=== PATIENT | female | born 1990 | race Caucasian/White ===

== ENCOUNTER 2017-10-19 09:28 | Observation (INO) ==
[2017-10-19] MEDS ORDERED: Orphenadrine 60 MG/2 ML VIAL IM ONE (09:41)
[2017-10-19] MEDS ORDERED: Ketorolac 15 MG/ML VIAL IM ONE (09:41)
--- NOTE | 2017-10-19 09:41 | Emergency Department Note ---
Disposition Clinical Impression: Lumbar pain Disposition: Admitted As Inpatient Condition: Good General Adult HPI - General Chief complaint: ED Back Pain/Injury Stated complaint: lower back pain Time Seen by Provider: 10/19/17 09:33 Source: patient Mode of arrival: EMS Limitations: no limitations Nursing Notes Reviewed: Yes Vital Signs Reviewed: Yes - History of Present Illness HPI Narrative: Patient is a 27 year old female with a past medical history of a back injury due to a work incident presenting to his primary complaint of a recent back injury that occurred yesterday evening. The patient states that she has had cold-like symptoms and last night she was coughing and after having a burst of coughing the patient states that she felt her back give out and she felt severe spasm in her lower lumbars. The patient states that she woke up this morning and she was having difficulty moving or getting out of bed so she called squad. She denies any fevers, chills, extremity weakness, loss of sensation, or loss of bowel or bladder function. Patient has a packet of information with with her that reveals proof of lumbar strain in the past however do not see any history of MRI with imaging results, however the patient states that she has had one which has showed compressed nerves in her back she is unsure of the specifics. - Related Data Home Medications Medication Instructions Recorded Confirmed Desog-E.estradiol/E.estradiol 1 tab PO DAILY 10/19/17 10/19/17 [Kimidess 28 Day Tablet] Previous Rx's Medication Instructions Recorded Cyclobenzaprine [Flexeril] 10 mg PO BID PRN #10 tablet 10/20/17 HYDROcodone/Acet 5/325 mg [[place] 1 tab PO Q6H PRN #12 tab 10/20/17 5-325 mg] predniSONE [PredniSONE] 40 mg PO DAILY #10 tablet 10/20/17 Allergies Allergy/AdvReac Type Severity Reaction Status Date / Time No Known Allergies Allergy Verified 10/19/17 10:00 All systems ED: reviewed and negative except as stated. Review of Systems: As Per HPI Constitutional: Denies: fever, chills ENT ED: Reports: congestion Cardiovascular: Denies: chest pain, palpitations, dyspnea on exertion, syncope Respiratory: Reports: cough. Denies: dyspnea, wheezes, hemoptysis, sputum production Gastrointestinal: Reports: other (Denies bowel incontinence or retention.). Denies: abdominal pain, nausea, vomiting, diarrhea, constipation Genitourinary: Reports: other (Denies bladder incontinence or retention.). Denies: urgency, dysuria, frequency Musculoskeletal: Reports: back pain. Denies: neck pain Integumentary: Denies: rash, abrasion Neurological: Denies: headache, weakness, numbness, paresthesias Past Medical History - Past Medical History Attestation: Yes The following information was validated with the patient. Physical Exam CONSTITUTIONAL: Well-appearing; well-nourished; A&O X 3, the patient is tearful on exam and she is laying flat on her back and states that she has difficulty with sitting up or moving positions. HEAD: Normocephalic; atraumatic. NOSE: The nose is normal in appearance without rhinorrhea LUNGS: CTAB, no wheezing CV: RRR without murmur, rub, gallop ABD: Non-distended, non-tender, soft, without rigidity, rebound or guarding BACK: There is pain with palpation musculature low back mainly in the lumbar to sacral area. No midline cervical/thoracic/lumbar sacral tenderness to palpation NEURO: Strength 5/5 for flexion and extension bilateral lower extremities, patellar DTR's normal X2, straight leg raise negative X2, sensation grossly intact bilateral lower extremities. No evidence of urinary incontinence SKIN: Normal for age and race; warm and dry; no apparent lesions, bruising or rashes Course Course Narrative: Patient is complaining of severe lower back pain, however there is no evidence of focal neurological deficit and the patient denies any bowel or bladder incontinence she also denies any history of IV drug abuse. He attempted to control the patient's pain without narcotics by using Toradol and steroids at the recommendation of spine surgeon Dr. Wheeler. However, we are not able to sufficiently treat the patient's pain. A CT of lumbar spine was ordered which revealed 4mm protrusion centrally of the disc between L5 and S1. The patient was given 2 [place] still without pain relief. This was followed by a dose of Dilaudid for pain which the patient's symptoms still not improved. Therefore plan is to admit the patient with an order for a lumbar MRI requested by the hospitalist and she will be admitted for pain control with a consult from Dr. Wheeler. Patient agrees with this plan. Vital Signs Temperature 98.1 F 10/19/17 09:30 Pulse Rate 123 01/03/18 09:30 Respiratory Rate 18 10/19/17 09:30 Blood Pressure 135/118 10/19/17 09:30 O2 Sat by Pulse Oximetry 100 10/19/17 09:30 Temperature 98.1 F 10/20/17 13:00 Pulse Rate 91 10/20/17 13:00 Respiratory Rate 20 10/20/17 13:00 Blood Pressure 103/69 10/20/17 13:00 O2 Sat by Pulse Oximetry 96 10/20/17 13:00 Oxygen Delivery Oxygen Delivery Room Air Medical Decision Making - Medical Records Medical records reviewed: Yes I reviewed the patient's medical records. - Lab Data Lab results reviewed: Yes I reviewed the patient's lab results. Result diagrams: 10/20/17 05:42 10/20/17 05:42 Lab Results 10/19/17 10/19/17 10/19/17 Range/Units 10:12 10:12 14:54 WBC 7.8 (4.3-11.1) K/mcL RBC 4.70 (3.82-4.97) M/mcL Hgb 13.5 (11.5-15.4) g/dL Hct 41.3 (35.3-44.9) % MCV 87.9 (83.0-100.0) fL MCH 28.7 (28.0-33.3) pg MCHC 32.7 (31.6-35.5) g/dL RDW 12.9 (11.5-14.5) % Plt Count 260 (140-400) K/mcL MPV 9.3 L (9.4-12.4) fL Immature Gran % 0.3 (0-4) % Seg Neutrophils % 66.1 % Lymphocytes % 25.9 % Monocytes % 7.3 % Eosinophils % 0.3 % Basophils % 0.1 % Neutrophils # 5.1 (1.6-8.9) K/mcL Lymphocytes # 2.0 (0.6-4.6) K/mcL Monocytes # 0.6 (0.0-1.3) K/mcL Eosinophils # 0.0 (0.0-0.6) K/mcL Basophils # 0.0 (0.0-0.2) K/mcL Sodium (136-145) mEq/L Potassium (3.5-5.1) mEq/L Chloride (98-107) mEq/L Carbon Dioxide (23-29) mEq/L BUN (6-20) mg/dL Creatinine (0.60-1.20) mg/dL Est GFR ( Amer) (> 60) Est GFR (Non-Af Amer) (> 60) BUN/Creatinine Ratio (6-26) Glucose (70-105) mg/dL Calculated Osmolality (280-300) Calcium (8.6-10.3) mg/dL Urine Color Yellow (Yellow) Urine Clarity Cloudy A (Clear) Urine pH 6.0 (5.0-8.0) pH Units Ur Specific [place] 1.012 (1.010-1.025) Urine Protein Negative (Neg-Trace) mg/dL Urine Glucose (UA) Normal (Normal) mg/dL Urine Ketones Trace H (Negative) mg/dL Urine Blood Negative (Negative) Urine Nitrite Negative (Negative) Urine Bilirubin Negative (Negative) Urine Urobilinogen Normal (Normal) mg/dL Ur Leukocyte Esterase Negative (Negative) Urine Microscopic RBC 0-3 (0-3) per hpf Urine Microscopic WBC 3-5 H (0-3) per hpf Ur Squamous Epith Cells Many H (None-Few) per lpf Urine Bacteria None Seen (None-Few) per hpf Hyaline Casts None Seen (None-Few) per lpf Ur Culture Indicated? NO (NO) Urine Test Negative (Negative) 10/19/17 Range/Units 14:54 WBC (4.3-11.1) K/mcL RBC (3.82-4.97) M/mcL Hgb (11.5-15.4) g/dL Hct (35.3-44.9) % MCV (83.0-100.0) fL MCH (28.0-33.3) pg MCHC (31.6-35.5) g/dL RDW (11.5-14.5) % Plt Count (140-400) K/mcL MPV (9.4-12.4) fL Immature Gran % (0-4) % Seg Neutrophils % % Lymphocytes % % Monocytes % % Eosinophils % % Basophils % % Neutrophils # (1.6-8.9) K/mcL Lymphocytes # (0.6-4.6) K/mcL Monocytes # (0.0-1.3) K/mcL Eosinophils # (0.0-0.6) K/mcL Basophils # (0.0-0.2) K/mcL Sodium 139 (136-145) mEq/L Potassium 2.9 L (3.5-5.1) mEq/L Chloride 108 H (98-107) mEq/L Carbon Dioxide 24 (23-29) mEq/L BUN 7 (6-20) mg/dL Creatinine 0.71 (0.60-1.20) mg/dL Est GFR ( Amer) > 60 (> 60) Est GFR (Non-Af Amer) > 60 (> 60) BUN/Creatinine Ratio 10 (6-26) Glucose 95 (70-105) mg/dL Calculated Osmolality 286 (280-300) Calcium 8.5 L (8.6-10.3) mg/dL Urine Color (Yellow) Urine Clarity (Clear) Urine pH (5.0-8.0) pH Units Ur Specific [place] (1.010-1.025) Urine Protein (Neg-Trace) mg/dL Urine Glucose (UA) (Normal) mg/dL Urine Ketones (Negative) mg/dL Urine Blood (Negative) Urine Nitrite (Negative) Urine Bilirubin (Negative) Urine Urobilinogen (Normal) mg/dL Ur Leukocyte Esterase (Negative) Urine Microscopic RBC (0-3) per hpf Urine Microscopic WBC (0-3) per hpf Ur Squamous Epith Cells (None-Few) per lpf Urine Bacteria (None-Few) per hpf Hyaline Casts (None-Few) per lpf Ur Culture Indicated? (NO) Urine Test (Negative) - Radiology Data Radiology results reviewed: Yes I reviewed the patient's radiology results. Lumbar Spine CT 10/19/17 10:28 IMPRESSION: Central disc protrusion at L5-S1 measuring approximately 4 mm in AP dimension. Otherwise unremarkable examination of the lumbar spine. D/ / 10/19/2017 11:34:42 Sunday Hunter MD / rich Interpreting Provider: Sunday Hunter MD Lumbar Spine MRI 10/19/17 14:39 IMPRESSION: Mild scoliosis and small central disc protrusion/disc marginal osteophyte at L5-S1 D/ / Jayy Blackman MD / Jayy Blackman MD Interpreting Provider: Jayy Blackman MD
--- NOTE | 2017-10-19 10:19 | Emergency Department Note ---
START Narrative - START START: I examined this patient and my medical decision-making was reviewed with the Resident Physician. I agree with the documented findings, disposition and treatment plan as described except to the extent set forth below. 27 yo F here for low back pain injured back today while having a coughing episode and having low back pain no cord compression symptoms. will tx with analgesics and muscle relaxer to see if this helps her discomfort she has had flu like illness as well her back pain started from the coughing spell and had no back pain prior to that.
[2017-10-19 10:24] LABS: Bilirubin,Urine Negative (Negative); Blood,Urine Negative (Negative); Clarity,Urine Cloudy (Clear); Color,Urine Yellow (Yellow); Glucose,Urine (UA) Normal (Normal); Ketones,Urine Trace mg/dL (Negative); Leukocyte Esterase,Urine Negative (Negative); Nitrite,Urine Negative (Negative); Protein,Urine Negative (Neg-Trace); Specific Gravity,Urine 1.012 (1.010-1.025); Urobilinogen,Urine Normal (Normal)
[2017-10-19 10:28] LABS: Bacteria,Urine None Seen per hpf (None-Few); Hyaline Casts,Urine None Seen per lpf (None-Few); RBC,Urine 0-3 per hpf (0-3); Squamous Epithelial Cell,Urine Many per lpf (None-Few)
[2017-10-19] MEDS ORDERED: *HR* HYDROcodone/Acet 5/325 mg TABLET PO ONE ×2 (11:20→12:21)
[2017-10-19] MEDS ORDERED: predniSONE 20 MG TABLET PO ONE (12:04)
[2017-10-19] MEDS ORDERED: Ondansetron ODT 4 MG TAB.RAPDIS SL ONE (13:19)
[2017-10-19] MEDS ORDERED: *HR* HYDROmorphone (PF) 1 MG/ML SYRINGE IM ONE ×2 (13:19→13:21)
[2017-10-19 15:01] LABS: Basophils % 0.1 %; Eosinophils % 0.3 %; Hematocrit 41.3 % (35.3-44.9); Hemoglobin 13.5 g/dL (11.5-15.4); Immature Granulocytes % 0.3 % (0-4); Lymphocytes % 25.9 %; Mean Corpuscular HGB Conc 32.7 g/dL (31.6-35.5); Mean Corpuscular Hemoglobin 28.7 pg (28.0-33.3); Mean Corpuscular Volume 87.9 fL (83.0-100.0); Mean Platelet Volume 9.3 fL (9.4-12.4); Monocytes # 0.6 K/mcL (0.0-1.3); Monocytes % 7.3 %; Neutrophils # 5.1 K/mcL (1.6-8.9); Platelet Count 260 K/mcL (140-400); Red Cell Distribution Width 12.9 % (11.5-14.5); Segmented Neutrophils % 66.1 %
[2017-10-19 15:14] LABS: Calcium 8.5 mg/dL (8.6-10.3); Carbon Dioxide 24 mEq/L (23-29); Chloride 108 mEq/L (98-107); Potassium 2.9 mEq/L (3.5-5.1); Sodium 139 mEq/L (136-145)
[2017-10-19 15:20] LABS: BUN/Creatinine Ratio 10 (6-26); Blood Urea Nitrogen 7 mg/dL (6-20); Glucose 95 mg/dL (70-105); Osmolality,Calculated 286 (280-300); eGFR For African Americans > 60 (> 60); eGFR For Non-African Americans > 60 (> 60)
[2017-10-19] MEDS ORDERED: Ondansetron 4 MG/2 ML VIAL IVP PRN (16:22)
[2017-10-19] MEDS ORDERED: Naloxone 0.4 MG/ML INJ IVP PRN (16:22)
[2017-10-19] MEDS ORDERED: *HR* HYDROmorphone (PF) 1 MG/ML SYRINGE IVP PRN (16:22)
[2017-10-19] MEDS: *HR* HYDROcodone/Acet 5/325 mg TABLET PO PRN ×2 (17:28→21:30)
--- NOTE | 2017-10-19 17:31 | Internal Med History&Physical ---
<Salma Spangler - Last Filed: 10/19/17 17:41> Date of Encounter: 10/19/17 Time of Encounter: 16:00 Assessment and Plan (1) Protruded lumbar disc Current visit: Yes Status: Acute 1 patient had been coughing experience lower extremity pain lumbar CT revealed central disc protrusion at L5-S1. consult Dr. Wheeler- per ER physician 2 he will continue with steroids 3 pain pain control with [place] and Dilaudid for severe pain 4 Flexeril for muscle spasms (2) DVT prophylaxis Current visit: Yes Status: Acute Lovenox subcutaneous Internal Medicine - H&P: HPI Chief complaint: back pain Admitted From: Emergency Dept Plans for Post Hospital Care: Home History of present illness: Ms. Denton is a 27 year old female with no past medical history. According to patient she has been experiencing gastrointestinal symptoms since Tuesday with nausea vomiting. These symptoms have improved however she continued to experience a cough. Today she was having a coughing episode and injured her lower back. She was unable to stand or bear weight onto her legs due to the pain. She describes the pain as sharp radiating down her lower back. She denies any loss of bowel or bladder numbness or tingling. She has full sensation to her lower extremities. She has had a previous back injury however denies any surgeries. She was given pain medications and muscle relaxers which did improve pain. Lumbar CT dated reveal central disc protrusion. ER physician did speak with Dr. Wheeler who will see patient in consult. Patient has been admitted for further workup evaluation. [place]et patient is hemodynamically stable and does not appear to be in any distress. Past Med Surg Social Fam HX - Past Medical History Medical history: no medical history Psychiatric history: depression - Social History Smoking Status: Never smoker Smokeless Tobacco Status: No Alcohol use: occasionally Drug use: none Internal Medicine - H&P: Meds Desog-E.estradiol/E.estradiol [Kimidess 28 Day Tablet] 1 tab PO DAILY 10/19/17 [ History] 3 Allergy/AdvReac Type Severity Reaction Status Date / Time No Known Allergies Allergy Verified 10/19/17 10:00 All Systems PM: A 10-system review of systems was performed and is negative for pertinent findings except as documented above in the HPI. - Constitutional Constitutional: no chills, no fever(s), no night sweats - EENT Eyes: no change in vision, no discharge, no pain, no photophobia Ears: no ear discharge, no ear pain, no tinnitus Nose, mouth and throat: no dysphagia, no nasal discharge, no neck pain, no sore throat - Cardiovascular Cardiovascular ROS IM: no chest pain, no diaphoresis, no dyspnea, no lightheadedness, no palpitations, no syncope - Respiratory Respiratory: cough, no dyspnea, no wheezing, no excessive phlegm production - Gastrointestinal Gastrointestinal: nausea, vomiting - Genitourinary Genitourinary: no change in urinary stream, no dysuria, no flank pain, no hematuria - Musculoskeletal Musculoskeletal ROS IM: back pain - Integumentary Integumentary IM: no rash, no unusual bruising - Neurological Neurological ROS: no confusion, no convulsions, no focal weakness, no numbness, no tingling, no tremor(s) - Hematologic/Lymphatic Hematologic/Lymphatic: no easy bruising - Constitutional Vitals: Temp Pulse Resp BP Pulse Ox 98.1 F 100 17 117/80 98 10/19/17 17:11 10/19/17 17:11 10/19/17 17:11 10/19/17 17:11 10/19/17 17:11 General appearance: Present: A&O X 3, answers questions appropriately - Head Head exam: Present: atraumatic, normocephalic - Eye Eye exam: Present: PERRL, conjuntiva pink, sclera anicteric Pupils: Present: PERRL - Neck Neck exam general surgery: Present: supple, trachea midline. Absent: lymphadenopathy - Respiratory Respiratory exam: Present: CTAB. Absent: accessory muscle use, rales, rhonchi, wheezes - Cardiovascular Cardiovascular exam: Present: RRR, +S1, +S2. Absent: diastolic murmur, gallop, rubs, systolic murmur - GI/Abdominal GI/Abdominal exam: Present: normal bowel sounds, soft, no peritoneal signs. Absent: distended, tenderness - Extremities Exam Extremities exam: Present: warm, radial pulses palpable and symmetrical. Absent : calf tenderness, cyanotic, pedal edema - Neurological Exam Neurological exam: Present: CN II-XII intact, oriented X3, no focal deficits. Absent: pronater drift, facial droop, speech deficit - Skin Skin exam: Present: dry, intact Internal Med - H&P Results - Labs CBC & Chem 7: 10/19/17 14:54 10/19/17 14:54 - Diagnostic Studies Other Images Additional comments: Lumbar Spine CT 10/19/17 10:28 IMPRESSION: Central disc protrusion at L5-S1 measuring approximately 4 mm in AP dimension. Otherwise unremarkable examination of the lumbar spine. D/ / 10/19/2017 11:34:42 Sunday Hunter MD / rich Interpreting Provider: Sunday Hunter MD Lumbar Spine MRI 10/19/17 14:39 IMPRESSION: Mild scoliosis and small central disc protrusion/disc marginal osteophyte at L5-S1 D/ / Jayy Blackman MD / Jayy Blackman MD Interpreting Provider: Jayy Blackman MD <Cortez Beavers - Last Filed: 10/19/17 19:37> Date of Encounter: 10/19/17 Time of Encounter: 18:05 - Musculoskeletal Musculoskeletal ROS IM: back pain, no arthralgias, no muscle weakness, no myalgias, no numbness - Neurological Neurological ROS: other (no loss of bowel or bladder function) - Constitutional Vitals: Temp Pulse Resp BP Pulse Ox 98.1 F 100 17 117/80 98 10/19/17 17:11 10/19/17 17:11 10/19/17 17:11 10/19/17 17:11 10/19/17 17:11 General appearance: Present: mild distress, A&O X 3, answers questions appropriately - Respiratory Respiratory exam: Present: CTAB. Absent: rales, rhonchi, wheezes - Cardiovascular Cardiovascular exam: Present: RRR, +S1, +S2 - Extremities Exam Extremities exam: Present: normal capillary refill, warm, radial pulses palpable and symmetrical. Absent: calf tenderness, tenderness - Back Exam Back exam: Present: tenderness (L/S region). Absent: CVA tenderness (L), CVA tenderness (R) - Neurological Exam Neurological exam: Present: alert, CN II-XII intact, oriented X3, no focal deficits, strengths equal and symetr throughout Internal Med - H&P Results - Labs CBC & Chem 7: 10/19/17 14:54 10/19/17 14:54 - Attending Attestation I discussed the patient MOHEGAN, PMH, ROS, lab data, and exam findings with Salma Spangler CNP. I then saw and examined patient independently as well. Patient has intractable back pain, especially if she stands and/or tries to get out of bed. Resting in bed, her pain is tolerable and minimal. She has no loss of sensation in her feet/legs. She moves her extremities well. She denies any loss of bowel or bladder function. I requested ER to order an MRI of her spine. Dr. Wheeler has also been consulted from the ER. Patient will need pain control, PT/OT evaluation, and consultation with Spine Surgery. Patient prefers to take a non-surgical approach to her bulging disc with surgery as a last option. Other than my comments above and noted exam findings, I agree with Salma's assessment and plan.
[2017-10-19] MEDS ORDERED: E ESTRADIOL PO SCH (21:00)
[2017-10-19] MEDS ORDERED: DESOG E ESTRADIOL PO SCH (21:00)
[2017-10-19] MEDS: E ESTRADIOL PO SCH (21:13)
[2017-10-19] MEDS: DESOG E ESTRADIOL PO SCH (21:13)
[2017-10-20] MEDS: methylPREDNISolone 125 MG/2 ML VIAL IVP SCH ×3 (01:02→15:46)
[2017-10-20] MEDS: *HR* HYDROcodone/Acet 5/325 mg TABLET PO PRN ×4 (01:49→17:22)
[2017-10-20 05:57] LABS: Basophils % 0.2 %; Hematocrit 42.5 % (35.3-44.9); Hemoglobin 13.8 g/dL (11.5-15.4); Immature Granulocytes % 0.3 % (0-4); Lymphocytes # 1.3 K/mcL (0.6-4.6); Lymphocytes % 19.8 %; Mean Corpuscular HGB Conc 32.5 g/dL (31.6-35.5); Mean Corpuscular Hemoglobin 28.3 pg (28.0-33.3); Mean Corpuscular Volume 87.3 fL (83.0-100.0); Mean Platelet Volume 9.8 fL (9.4-12.4); Monocytes # 0.1 K/mcL (0.0-1.3); Monocytes % 1.7 %; Neutrophils # 5.1 K/mcL (1.6-8.9); Platelet Count 296 K/mcL (140-400); Red Blood Count 4.87 M/mcL (3.82-4.97); Red Cell Distribution Width 12.9 % (11.5-14.5)
[2017-10-20 06:22] LABS: Calcium 9.2 mg/dL (8.6-10.3); Magnesium 2.2 mg/dL (1.6-2.6)
[2017-10-20 06:23] LABS: BUN/Creatinine Ratio 14 (6-26); Blood Urea Nitrogen 8 mg/dL (6-20); Carbon Dioxide 21 mEq/L (23-29); Chloride 107 mEq/L (98-107); Glucose 119 mg/dL (70-105); Osmolality,Calculated 283 (280-300); Potassium 3.7 mEq/L (3.5-5.1); Sodium 137 mEq/L (136-145); eGFR For African Americans > 60 (> 60); eGFR For Non-African Americans > 60 (> 60)
[2017-10-20] MEDS ORDERED: *HR* Enoxaparin 40 MG/0.4 ML SYRINGE SQ SCH (07:00)
--- NOTE | 2017-10-20 11:57 | Internal Med Progress Note ---
Date of Encounter: 10/20/17 Time of Encounter: 09:10 - Assessment and plan (1) Protruded lumbar disc Current Visit: Yes Status: Acute Assessment and plan: PT reports recent viral GI illness with n/v, states that she has had a cough recently and while walking across her bedroom, she coughed and felt instant back pain and was unable to walk. Pt denies loss of sensation or bowel or bladder control. She denies numbness or tingling and has been able to bear weight with assistance. Pt was waiting on consultation from Dr. Montero. I appreciate his consultation and recommendation. MRI lumbar spine showed mild scoliosis and small central disc protrusion/disc marginal osteophyte at L5-S1. Continue pain control- [place], Dilaudid prn, Flexeril Dr Wheeler consultation (2) DVT prophylaxis Current Visit: Yes Status: Acute Assessment and plan: SQ LOvenox - Time Spent With Patient less than 15 minutes - Subjective Interval history: Pt was seen and assessed at bedside with multiple family members at 0910 am. Pt states that she is feeling better than she did last night and has been up with assistance to the bathroom. She denies loss of sensation to extremities, loss of bowel or bladder control. She denies headache, n/v/d, abdominal pain, chest pain, SOB, or n/t to extremities. - Constitutional Vitals: Temp Pulse Resp BP Pulse Ox 97.5 F L 84 19 121/77 97 10/20/17 07:30 10/20/17 07:30 10/20/17 07:30 10/20/17 07:30 10/20/17 07:30 General appearance: Present: mild distress, A&O X 3, pleasant, no acute distress , answers questions appropriately - Head Head exam: Present: atraumatic, normal inspection, normocephalic - Eye Eye exam: Present: normal appearance, conjuntiva pink, sclera anicteric - Neck Neck exam general surgery: Present: supple, trachea midline. Absent: lymphadenopathy - Respiratory Respiratory exam: Present: CTAB. Absent: accessory muscle use, rales, rhonchi, wheezes - Cardiovascular Cardiovascular exam: Present: RRR, +S1, +S2. Absent: diastolic murmur, gallop, rubs, systolic murmur - GI/Abdominal GI/Abdominal exam: Present: normal bowel sounds, soft. Absent: distended, hepatomegaly, tenderness - Extremities Exam Extremities exam: Present: normal capillary refill, normal inspection, warm, radial pulses palpable and symmetrical. Absent: calf tenderness, cyanotic, pedal edema, tenderness - Neurological Exam Neurological exam: Present: alert, oriented X3, no focal deficits. Absent: altered, facial droop, speech deficit - Skin Skin exam: Present: dry, intact, normal color, warm. Absent: rash Internal Medicine: Result - Labs CBC & Chem 7: 10/20/17 05:42 10/20/17 05:42 Labs: Short CBC 10/20/17 Range/Units 05:42 WBC 6.5 (4.3-11.1) K/mcL Hgb 13.8 (11.5-15.4) g/dL Hct 42.5 (35.3-44.9) % Plt Count 296 (140-400) K/mcL Neutrophils # 5.1 (1.6-8.9) K/mcL BMP 10/20/17 05:42 Sodium 137 Potassium 3.7 D Chloride 107 Carbon Dioxide 21 L BUN 8 Creatinine 0.59 L Glucose 119 H Calcium 9.2 Consult Discharge Plan - Plan Referrals: NONE,PCP [Primary Care Provider] -
[2017-10-20 14:02] VITALS: BP 103/69
--- NOTE | 2017-10-20 17:17 | Discharge Summary ---
Date of Encounter: 10/20/17 Time of Encounter: 09:10 - Discharge Diagnosis (1) Protruded lumbar disc Priority: Primary Status: Acute Comments: PT reports recent viral GI illness with n/v, states that she has had a cough recently and while walking across her bedroom, she coughed and felt instant back pain and was unable to walk. Pt denies loss of sensation or bowel or bladder control. She denies numbness or tingling and has been able to bear weight with assistance. Pt was waiting on consultation from Dr. Montero. I appreciate his consultation and recommendation. Dr. Montero was not able to see patient today, states patient can either go home tonight and follow up at the spine center, or stay overnight and speak to him in the morning. MRI lumbar spine showed mild scoliosis and small central disc protrusion/disc marginal osteophyte at L5-S1. Pt will be discharged with [place], Flexeril, and Prednisone. (2) DVT prophylaxis Priority: Primary Status: Acute Comments: Lovenox subcutaneous. - Discharge Medications Prescriptions: Cyclobenzaprine [Flexeril] 10 mg PO BID PRN #10 tablet PRN Reason: Muscle Spasm HYDROcodone/Acet 5/325 mg [[place] 5-325 mg] 1 tab PO Q6H PRN #12 tab PRN Reason: Pain predniSONE [PredniSONE] 40 mg PO DAILY #10 tablet Home Medications: Desog-E.estradiol/E.estradiol [[place] 28 Day Tablet] 1 tab PO DAILY 10/19/17 [ History] Cyclobenzaprine [Flexeril] 10 mg PO BID PRN #10 tablet 10/20/17 [Rx] HYDROcodone/Acet 5/325 mg [[place] 5-325 mg] 1 tab PO Q6H PRN #12 tab 10/20/17 [Rx ] predniSONE [PredniSONE] 40 mg PO DAILY #10 tablet 10/20/17 [Rx] Allergies/Adverse Reactions: 3 Allergy/AdvReac Type Severity Reaction Status Date / Time No Known Allergies Allergy Verified 10/19/17 10:00 Date of admission: 10/19/17 17:09 Primary care physician: PCP NONE Discharging clinician: Radha Trevino Anticipated date of discharge: 10/20/17 - Patient Status Disposition: Home, Self-Care Condition: Good Functional capacity at discharge: independent ambulation Overall status at discharge: patient is progressing back to baseline - Discharge Instructions Follow Up With: NONE,PCP [Primary Care Provider] - Additional Instructions: Follow-up with Dr. Wheeler as scheduled. Take your medications as prescribed. Return to the emergency department as needed for any other problems or concerns. Return to normal activities and diet as tolerated. - Diet and Activity Activity: increase activity as tolerated Diet: advance to your usual diet Hospital course: Ms. Denton is a 27 year old female with no significant past medical history presented to the emergency department after her coughing very hard and reporting instant back pain and inability to bear weight. Patient has been bearing weight, she does have a disc protrusion at L5-S1. She has been treated with pain medicine, muscle relaxers, steroids. She will need to follow up with Dr. Wheeler at [facility]. The patient is stable and appropriate for discharge. - Time Spent with Patient Total time spent providing and/or coordinating discharge services: Less than 30 minutes - Constitutional Vitals: Temp Pulse Resp BP Pulse Ox 98.1 F 91 20 103/69 96 10/20/17 13:00 10/20/17 13:00 10/20/17 13:00 10/20/17 13:00 10/20/17 13:00 General appearance: Present: mild distress, A&O X 3, pleasant, no acute distress , answers questions appropriately - Head Head exam: Present: atraumatic, normal inspection, normocephalic - Eye Eye exam: Present: normal appearance, PERRL, conjuntiva pink, sclera anicteric Pupils: Present: PERRL - Neck Neck exam general surgery: Present: supple, trachea midline. Absent: lymphadenopathy, tenderness - Respiratory Respiratory exam: Present: CTAB. Absent: accessory muscle use, chest wall tenderness, decreased breath sounds, rales, respiratory distress, rhonchi, wheezes - Cardiovascular Cardiovascular exam: Present: RRR, +S1, +S2. Absent: diastolic murmur, gallop, rubs, systolic murmur - GI/Abdominal GI/Abdominal exam: Present: normal bowel sounds, soft. Absent: distended, hepatomegaly, tenderness - Extremities Exam Extremities exam: Present: normal capillary refill, warm. Absent: calf tenderness, cyanotic, pedal edema - Neurological Exam Neurological exam: Present: alert, oriented X3, no focal deficits, pronater drift. Absent: altered, motor sensory deficit, facial droop, speech deficit - Skin Skin exam: Present: dry, intact, normal color, warm. Absent: rash
[2017-10-20] MEDS: DESOG E ESTRADIOL PO SCH (17:22)
[2017-10-20] MEDS: E ESTRADIOL PO SCH (17:22)
== END 2017-10-20 17:56 | disposition home or self-care (01) ==
LOC: EMEROO 09:28 → 3BNU 09:28 → 1NENUPED 10-20 10:14
PROVIDERS: ADMIT Pediatrics; ATTEND Registered Nurse